=== PATIENT | male | born 1965 | race Caucasian/White ===

== ENCOUNTER 2023-07-28 18:52 | Emergency (ER) | payer BC ==
[2023-07-28] MEDS ORDERED: Acetaminophen 325 MG Tab PO ONE (19:47)
[2023-07-28] MEDS ORDERED: Ibuprofen 400 MG Tab PO ONE (19:47)
[2023-07-28] MEDS ORDERED: oxyCODONE 5 MG Tab PO ONE (19:47)
[2023-07-28] MEDS ORDERED: Lidocaine 2% 5 ML SDV INJECT ONE (19:48)
[2023-07-28] MEDS ORDERED: Diphtheria,Pertussis(Acell),Tetanus Vaccine 0.5 ML Syringe IM ONE (19:48)
[2023-07-28] MEDS ORDERED: Cephalexin 500 MG Cap PO ONE (19:48)
[2023-07-28] MEDS ORDERED: Bacitracin Oint 1 GM U/D Packet TOP ONE (20:30)
[2023-07-28] MEDS ORDERED: Bacitracin Oint 1 GM U/D Packet ONE (20:41)
== END 2023-07-28 21:05 | disposition home or self-care (01) ==
LOC: MW.ED 18:52
DX: S61.307A Unspecified open wound of left little finger with damage to nail, initial encounter (principal); I25.10 Atherosclerotic heart disease of native coronary artery without angina pectoris; I25.2 Old myocardial infarction; E66.9 Obesity, unspecified; Z68.33 Body mass index [BMI] 33.0-33.9, adult; Z23 Encounter for immunization; W23.0XXA Caught, crushed, jammed, or pinched between moving objects, initial encounter; Y92.65 Oil rig as the place of occurrence of the external cause; Y99.0 Civilian activity done for income or pay
CPT/HCPCS: 12002; 73140; 90471; 90715; 99283; A9270; J3490